=== PATIENT | female | born 1975 | race Caucasian/White ===

== ENCOUNTER 2019-09-14 15:00 | Outpatient (CLI) | payer BC, SELFPAY ==
--- NOTE | 2019-09-14 15:09 | US_ITS ---
WS: [id number] ULTRASOUND RENAL TECHNIQUE: Ultrasound examination of both kidneys. CLINICAL INFORMATION: HEMATURIA COMPARISON: None. FINDINGS: RIGHT: Right kidney is normal in size and appearance. Echogenicity: Normal. Cortical thickness: 1.1 cm; Normal. Hydronephrosis: None. Perinephric fluid: None. Right kidney measures: 11.4 cm x 5.1 cm x 4.7 cm. LEFT: Left kidney is normal in size and appearance. Echogenicity: Normal. Cortical thickness: 1.6 cm; Normal. Hydronephrosis: None. Perinephric fluid: None. Left kidney measures: 12.0 cm x 4.4 cm x 3.6 cm. Normal visualized aorta. Normal bladder US/US renal BI with bladder IMPRESSION: 1. No hydronephrosis in either kidney. 2. Normal bladder. 3. Previously described 6 cm right hepatic cavernous hemangioma incidentally n oted
== END 2019-09-14 15:01 | disposition home or self-care (01) ==
LOC: RAD 15:06
PROVIDERS: Family Provider Family Medicine; PCP Family Medicine; Visit Provider Family Medicine
DX: R31.9 Hematuria, unspecified (principal)
CPT/HCPCS: 76770; 76857

== ENCOUNTER 2019-10-09 09:26 | Outpatient (CLI) | payer BC, SELFPAY ==
--- NOTE | 2019-10-09 09:35 | US_ITS ---
WS: [id number] ULTRASOUND ABDOMEN LIMITED CLINICAL INFORMATION: LIVER/CAVERNOUS HEMANGIOMA COMPARISON: MRI March 22, 2019 and ultrasound March 12, 2019 FINDINGS: Liver Size: Normal. Craniocaudal length: 17.0 cm. Echogenicity: Normal. Surface nodularity: None. Mass (size and location): Right hepatic hemangioma measuring 5.7 x 6.2 x 5.3 cm appears unchanged Bile ducts Intrahepatic ducts: Normal. Common bile duct diameter: 2.3 mm. Gallbladder Normal. Gallstones: None. Gallbladder sludge: None. Gallbladder wall thickening: None. Pericholecystic fluid: None. Sonographic Marques sign: Absent. Pancreas Not well seen Right kidney: Normal. Hydronephrosis: None. Size: 12.0 cm x 4.5 cm x 4.3 cm. Abdominal aorta and IVC Visualized portions are normal. Ascites: None. US/US abdomen limited [id number] IMPRESSION: 1. Stable right hepatic cavernous hemangioma measuring 5.7 x 6.2 x 5.3 CCM. 2. Gallbladder is normal. 3. No hydronephrosis in right kidney.
== END 2019-10-09 09:27 | disposition home or self-care (01) ==
LOC: US 09:29
PROVIDERS: Family Provider Family Medicine; PCP Family Medicine; Visit Provider Family Medicine
DX: D18.03 Hemangioma of intra-abdominal structures (principal)
CPT/HCPCS: 76705

== ENCOUNTER → 2019-10-12 13:23 | Outpatient (BNVA) | payer BC, SELFPAY | PROVIDERS: Family Provider Family Medicine; PCP Family Medicine; Visit Provider Anesthesiology | DX: G89.29 Other chronic pain (principal); M51.36 Other intervertebral disc degeneration, lumbar region; Z79.891 Long term (current) use of opiate analgesic | CPT/HCPCS: 99213; 99214 ==

== ENCOUNTER → 2020-02-01 11:35 | Outpatient (BNVA) | payer BC, OTHER, SELFPAY | PROVIDERS: Family Provider Family Medicine; PCP Family Medicine; Visit Provider Nurse Practitioner | DX: G89.29 Other chronic pain (principal); M54.41 Lumbago with sciatica, right side; M54.42 Lumbago with sciatica, left side; M19.90 Unspecified osteoarthritis, unspecified site; Z79.891 Long term (current) use of opiate analgesic | CPT/HCPCS: 99213 ==

== ENCOUNTER → 2020-03-28 10:02 | Outpatient (BNVA) | payer OTHER, SELFPAY | PROVIDERS: Family Provider Family Medicine; PCP Family Medicine; Visit Provider Nurse Practitioner | DX: G89.29 Other chronic pain (principal); M54.41 Lumbago with sciatica, right side; M51.36 Other intervertebral disc degeneration, lumbar region; M19.90 Unspecified osteoarthritis, unspecified site; Z79.891 Long term (current) use of opiate analgesic | CPT/HCPCS: 99213 ==

== ENCOUNTER → 2020-05-30 08:48 | Outpatient (BNVA) | payer OTHER, SELFPAY | PROVIDERS: Family Provider Family Medicine; PCP Internal Medicine; Visit Provider Anesthesiology | DX: G89.29 Other chronic pain (principal); M51.36 Other intervertebral disc degeneration, lumbar region; Z79.891 Long term (current) use of opiate analgesic | CPT/HCPCS: 99212; 99214 ==

== ENCOUNTER → 2020-07-29 10:05 | Outpatient (BNVA) | payer OTHER, SELFPAY | PROVIDERS: Family Provider Family Medicine; PCP Internal Medicine; Visit Provider Anesthesiology | DX: G89.29 Other chronic pain (principal); M54.41 Lumbago with sciatica, right side; M51.36 Other intervertebral disc degeneration, lumbar region; Z79.1 Long term (current) use of non-steroidal anti-inflammatories (NSAID); Z79.891 Long term (current) use of opiate analgesic | CPT/HCPCS: 99213; 99214 ==

== ENCOUNTER 2020-09-16 09:47 | Outpatient (CLI) | payer OTHER, SELFPAY ==
--- NOTE | 2020-09-16 09:58 | MM_ITS ---
WS: [id number] BILATERAL DIGITAL SCREENING MAMMOGRAPHY WITH CAD CLINICAL INFORMATION: SCREENING HISTORY: Screening mammogram. No current complaints. COMPARISON: TECHNIQUE: Bilateral CC and MLO views. FINDINGS: The breasts are composed of heterogeneous fibroglandular density tissue, which can limit the detectio n of small underlying mass lesions. No suspicious mass, asymmetry, calcifications, or architectural d istortion. No evidence of malignancy. MM/[place] [id number] IMPRESSION: BI-RADS: 1-Negative FOLLOW UP: 1 Year Follow-up Recommend return to annual screening mammography.
== END 2020-09-16 09:48 | disposition home or self-care (01) ==
LOC: RADSHAW 09:48
PROVIDERS: PCP Internal Medicine; Visit Provider Internal Medicine
DX: Z12.31 Encounter for screening mammogram for malignant neoplasm of breast (principal)
CPT/HCPCS: 77067

== ENCOUNTER → 2020-09-26 09:00 | Outpatient (BNVA) | payer OTHER, SELFPAY | PROVIDERS: PCP Internal Medicine; Visit Provider Anesthesiology | DX: G89.29 Other chronic pain (principal); M54.41 Lumbago with sciatica, right side; M51.36 Other intervertebral disc degeneration, lumbar region; M79.671 Pain in right foot; M79.672 Pain in left foot; M19.90 Unspecified osteoarthritis, unspecified site; Z79.891 Long term (current) use of opiate analgesic | CPT/HCPCS: 99214 ==

== ENCOUNTER → 2020-11-18 10:34 | Outpatient (BNVA) | payer OTHER, SELFPAY | PROVIDERS: PCP Internal Medicine; Visit Provider Anesthesiology | DX: G89.29 Other chronic pain (principal); M54.41 Lumbago with sciatica, right side; M51.36 Other intervertebral disc degeneration, lumbar region; M79.671 Pain in right foot; M79.672 Pain in left foot; M19.90 Unspecified osteoarthritis, unspecified site; Z79.891 Long term (current) use of opiate analgesic | CPT/HCPCS: 99214 ==

== ENCOUNTER → 2021-01-27 10:36 | Outpatient (BNVA) | payer OTHER, SELFPAY | PROVIDERS: PCP Internal Medicine; Visit Provider Nurse Practitioner | DX: G89.29 Other chronic pain (principal); M70.61 Trochanteric bursitis, right hip; M19.90 Unspecified osteoarthritis, unspecified site; M51.36 Other intervertebral disc degeneration, lumbar region; Z79.891 Long term (current) use of opiate analgesic; Y93.9 Activity, unspecified | CPT/HCPCS: 99213 ==

== ENCOUNTER → 2021-02-04 13:41 | Outpatient (BNVA) | payer OTHER, SELFPAY | PROVIDERS: PCP Internal Medicine; Visit Provider Anesthesiology Pain Medicine | DX: M70.61 Trochanteric bursitis, right hip (principal); Y93.9 Activity, unspecified; Z79.891 Long term (current) use of opiate analgesic | CPT/HCPCS: 20610; 77002; J1030; J3490 ==

== ENCOUNTER → 2021-03-26 09:25 | Outpatient (BNVA) | payer OTHER, SELFPAY | PROVIDERS: PCP Internal Medicine; Visit Provider Nurse Practitioner | DX: G89.29 Other chronic pain (principal); M51.36 Other intervertebral disc degeneration, lumbar region; M19.90 Unspecified osteoarthritis, unspecified site; Z79.891 Long term (current) use of opiate analgesic | CPT/HCPCS: 99213 ==

== ENCOUNTER → 2021-05-28 10:54 | Outpatient (BNVA) | payer OTHER, SELFPAY | PROVIDERS: PCP Internal Medicine; Visit Provider Anesthesiology | DX: G89.29 Other chronic pain (principal); M51.36 Other intervertebral disc degeneration, lumbar region; Z79.891 Long term (current) use of opiate analgesic | CPT/HCPCS: 99213 ==

== ENCOUNTER → 2021-06-11 09:51 | Outpatient (BNVA) | payer OTHER, SELFPAY | PROVIDERS: PCP Internal Medicine; Visit Provider Anesthesiology | DX: G89.29 Other chronic pain (principal); M51.16 Intervertebral disc disorders with radiculopathy, lumbar region; M51.36 Other intervertebral disc degeneration, lumbar region; Z79.891 Long term (current) use of opiate analgesic; Z77.22 Contact with and (suspected) exposure to environmental tobacco smoke (acute) (chronic) | CPT/HCPCS: 62323; J1040; J3490 ==

== ENCOUNTER 2021-09-30 06:56 | Outpatient (CLI) | payer OTHER, SELFPAY ==
--- NOTE | 2021-09-30 07:03 | US_ITS ---
WS: [id number] RIGHT UPPER QUADRANT ULTRASOUND HISTORY: CAVERNOUS HEMANGIOMA, LIVER COMPARISON: 10/09/2019 Liver: 15.2 cm in length. Liver is normal size. Large slightly lobulated hyperechoic mass towards the diaphragm measures 5.5 x 6.4 x 5.1 cm. Consistent with a giant cavernous hemangioma which is been pr eviously described. No significant increase in size and no evidence for an acute hemorrhage. No edema additional masses are identified. Portal Vein: Normal hepatopetal flow with monophasic waveform. Gallbladder: Normally distended gallbladder with no stones or wall thickening. CBD: 0.4 cm Pancreas: Limited visualization. No abnormality identified. Right kidney: 11.3 cm in length. Normal size and echogenicity. No hydronephrosis or mass. Aorta and IVC: Unremarkable abdominal aorta and IVC. No ascites. US/US liver [id number] IMPRESSION: 1. Stability of hepatic giant cavernous hemangioma measuring 5.5 x 6.4 x 5.1 c m. No evidence for interval hemorrhage or enlargement. 2. Normal gallbladder.
== END 2021-09-30 06:57 | disposition home or self-care (01) ==
LOC: RAD 06:57
PROVIDERS: PCP Family Medicine; Visit Provider Family Medicine
DX: D18.03 Hemangioma of intra-abdominal structures (principal)
CPT/HCPCS: 76705

== ENCOUNTER 2021-11-25 11:36 | Outpatient (CLI) | payer OTHER, SELFPAY ==
--- NOTE | 2021-11-25 12:02 | MR_ITS ---
WS: [id number] MRI LUMBAR SPINE WITH CONTRAST TECHNIQUE: Sagittal T1, T2 and STIR imaging. Axial T1 and T2 imaging. Post gadolinium imaging was obt ained. CLINICAL INFORMATION: LUMBAR SPONDYLOSIS W/RADICULOPATHY COMPARISON: CT lumbar spine 10 , and MRI 3 ,009 FINDINGS: Mild lumbar curve. No acute compression. No high-grade central canal stenosis. Mild disc space narrow ing lower thoracic spine at T11-T12. Small annular fissure L4-L5. L1-L2: Mild annular bulging with a tiny shallow central protrusion. Mild facet arthropathy. Spinal ca nal and foramen are patent. L2-L3: Mild annular bulging. Tiny shallow central protrusion. Moderate facet arthropathy. Spinal kayli l and foramen are patent. L3-L4: Mild annular bulging with slight effacement of ventral thecal sac. Moderate facet arthropathy. Spinal canal and foramen are patent. L4-L5: Mild annular bulging. Small annular fissure. Mild LEFT and no significant RIGHT foraminal narr owing. Moderate facet arthropathy. Spinal canal is patent. L5-S1: Mild annular bulging with slight effacement of the ventral thecal sac. Mild facet arthropathy. Spinal canal and foramen are patent. No abnormal gadolinium enhancement. A few tiny disc protrusions in the mid thoracic spine most promin ent at T6-T7. Disc space narrowing in the lower thoracic spine has slightly progressed compared to 2009. MR/MR lumbar spine wo/w con [id number] IMPRESSION: 1. Mild lumbar curve. No acute compression. No high-grade central canal stenos is. 2. Tiny annular fissure L4-L5 with mild annular bulging. Slight effacement of ventral thecal sac. Spinal canal is patent at this level. 3. Tiny shallow central protrusions L1-L2, L2-L3, and L3-L4 without significan t central canal stenosis. 4. Mild to moderate facet arthropathy worse at L3-L4 and L4-L5. 5. Small shallow central protrusion in the thoracic spine T6-T7. 6. No abnormal gadolinium enhancement. 7. No significant foraminal narrowing.
[2021-11-25] MEDS: gadobenate dimeglumine 20 mL vial IV (13:05)
== END 2021-11-25 11:37 | disposition home or self-care (01) ==
LOC: RAD 11:44
PROVIDERS: PCP Family Medicine; Visit Provider General Practice
DX: M47.26 Other spondylosis with radiculopathy, lumbar region (principal); M51.26 Other intervertebral disc displacement, lumbar region; M51.24 Other intervertebral disc displacement, thoracic region
CPT/HCPCS: 72158

== ENCOUNTER 2022-01-05 13:48 | Outpatient (CLI) | payer OTHER, SELFPAY ==
--- NOTE | 2022-01-05 14:07 | XR_ITS ---
WS: [id number] Exam: XR ribs RT 2V* [id number] Date/Time of Exam: 01/05/2022 2:13 PM Reason For Exam: R SIDED RIB PAIN No sign of acute right rib fracture. The right lung is fully expanded and clear. No pulmonary or pleu ral reactive changes. XR/XR ribs RT 2V* [id number] IMPRESSION: 1. Negative right rib study. No pneumothorax.
== END 2022-01-05 13:49 | disposition home or self-care (01) ==
PROVIDERS: PCP Family Medicine; Visit Provider Family Medicine
DX: R07.81 Pleurodynia (principal)
CPT/HCPCS: 71100

== ENCOUNTER → 2023-06-19 14:04 | Outpatient (BNVA) | payer OTHER, SELFPAY | PROVIDERS: PCP Nurse Practitioner Family; Visit Provider Nurse Practitioner | DX: R39.9 Unspecified symptoms and signs involving the genitourinary system (principal); B37.31 Acute candidiasis of vulva and vagina | CPT/HCPCS: 81000 ==

== ENCOUNTER 2024-01-05 13:23 | Outpatient (CLI) | payer OTHER, SELFPAY ==
--- NOTE | 2024-01-05 13:35 | XR_ITS ---
WS: [id number] Left foot, 3 views, 01/05/2024 Clinical Data: PAIN IN LEFT TOE, PLANTAR FIBROMATOSIS Comparison: Left foot, 12/31/2009 Findings: No fractures or dislocations are seen. No bone destruction or erosion is noted. The joint spaces and soft tissues are normal. There is a plantar spur and an Achilles spur. XR/XR foot LT min 3V* [id number] Impression: Negative left foot.
== END 2024-01-05 13:24 | disposition home or self-care (01) ==
PROVIDERS: PCP Family Medicine; Visit Provider Family Medicine
DX: M72.2 Plantar fascial fibromatosis (principal); M25.775 Osteophyte, left foot; M77.32 Calcaneal spur, left foot
CPT/HCPCS: 73630

== ENCOUNTER 2024-10-17 07:59 | Emergency (ER) | payer OTHER, SELFPAY ==
--- NOTE | 2024-10-17 08:02 | XR_ITS ---
WS: [id number] XR hand RT min 3V* [id number] REASON FOR EXAM: injury FINDINGS: No acute fracture. Mild changes of osteoarthritis in the 3 joints of the thumb, otherwise the joint spaces of the right hand are intact and relatively well preserved. XR/XR hand RT min 3V* [id number] IMPRESSION: No acute abnormality.
--- NOTE | 2024-10-17 08:15 | XR_ITS ---
WS: [id number] XR wrist RT min 3V* [id number] REASON FOR EXAM: injury FINDINGS: No acute fracture. Scaphoid and scapholunate interval intact. Normal orientation of the lunate on the lateral view. Distal radius and ulna intact. Osteoarthritis in the carpal metacarpal joint. Mild narrowing of the radial scaphoid joint with mild to moderate subchondral sclerosis of the radius. XR/XR wrist RT min 3V* [id number] IMPRESSION: No acute abnormality. 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
[2024-10-17 08:24] VITALS: BP 163/96; PULSE 59; RESP 18; TEMP 36.7; O2SAT 99; BMI 32.3
[2024-10-17 08:30] VITALS: PULSE 58; O2SAT 98
--- NOTE | 2024-10-17 08:32 | W.ED.EXTPRO ---
HPI - Extremity Problem General: Chief complaint: Extremity Injury, Upper Stated complaint: right hand pain, fall Time Seen by Provider: 10/17/24 08:01 Source: patient Mode of arrival: ambulatory Limitations: no limitations History of Present Illness: 49-year-old female who states she tripped coming out of her house today landed on her right wrist. States that she has pain to the right wrist states she also scraped up her left knee has minimal pain to her knee is able ambulate without any difficulty. She denies hitting her head. Associated symptoms: Deny chest pain, fever(s) or rash Related Data Home Medications ?Medication ?Instructions ?Recorded ?Confirmed cetirizine 10 mg tablet 10 mg PO DAILY 10/12/19 10/17/24 diphenhydramine HCl 25 mg tablet 25 mg PO Q6H PRN allergies 10/12/19 10/17/24 (Benadryl Allergy) pantoprazole 40 mg tablet,delayed 40 mg PO QAM 06/19/23 10/17/24 release (Protonix) celecoxib 200 mg capsule (Celebrex) 200 mg PO QAM 10/17/24 10/17/24 escitalopram oxalate 20 mg tablet 20 mg PO DAILY 10/17/24 10/17/24 hydrochlorothiazide 25 mg tablet 25 mg PO QAM 10/17/24 10/17/24 hydrocodone 10 mg-acetaminophen 1 tab PO Q8H PRN Pain 10/17/24 10/17/24 325 mg tablet solifenacin 5 mg tablet 5 mg PO DAILY 10/17/24 10/17/24 vitamin B complex 1 tab PO DAILY 10/17/24 10/17/24 Previous Rx's ?Medication ?Instructions ?Recorded tizanidine 4 mg tablet 4 mg PO TID PRN muscle spasticity 08/25/21 #90 tabs Allergies Allergy/AdvReac Type Severity Reaction Status Date / Time gabapentin Allergy ADR-Confusi Verified 03/05/24 11:33 on tramadol Allergy ADR-Headach Verified 03/05/24 11:33 e Review of Systems Const: Denies: fever(s), chills, body aches or change in appetite Eyes: Denies: blurry vision or eye discomfort ENMT: Denies: throat pain or dental pain Card: Denies: chest pain Resp: Denies: dyspnea GI: Denies: abdominal pain, nausea, vomiting or diarrhea Musc: Reports: extremity pain; Denies: neck pain or back pain Skin/Breast: Denies: rash Neuro: Denies: headache(s) PFSH ED PFSH: Medical History (Updated 10/17/24 @ 08:42 by Emerita Hutson MD) Chronic low back pain DDD (degenerative disc disease), lumbar Encounter for long-term opiate analgesic use Surgical History History of bilateral tubal ligation Hx of oral surgery History of cryosurgery Family History Other CAD (coronary artery disease) Cancer Diabetes Stroke Social History Smoking and tobacco/nicotine status: never used tobacco/nicotine Second hand smoke exposure: Yes Alcohol intake: never Substance/Drug Use: never Physical Exam Const: COMMON NORMALS: no acute distress, patient oriented x3 and healthy appearing HENMT: COMMON NORMALS: normocephalic and atraumatic HEAD & SCALP: normocephalic and atraumatic Neck/C-Spine: COMMON NORMALS: full ROM and supple Chest: COMMONS NORMALS: normal inspection of the chest Resp: COMMON NORMALS: normal respiratory effort Cardio: COMMON NORMALS: regular rate RATE: regular rate Extremity: NARRATIVE EXTREMITY EXAM: tenderness over right wrist no obvious deformity Neuro: COMMON NORMALS: patient oriented x3, moves all extremities and no focal motor deficits Psych: COMMON NORMALS: mental status grossly normal, Normal thought process present and cooperative THOUGHT PROCESS: Normal thought process present Skin: COMMON NORMALS: no rashes or lesions noted and no wounds GENERAL SKIN EXAM: no rashes or lesions noted Course Vital Signs: Vital signs: Vital Signs Temperature 98.1 F 10/17/24 08:24 Pulse Rate 58 L 10/17/24 08:30 Respiratory Rate 18 10/17/24 08:24 Blood Pressure 163/96 10/17/24 08:24 Pulse Oximetry 98 10/17/24 08:30 Oxygen Delivery Me thod Room Air 10/17/24 08:30 MDM - Extremity (Nontraumatic) Medical Decision Making Patient presents here with right wrist sprain from a fall imaging is negative patient stable for discharge follow-up PCP return if worsening. Medical Records I reviewed the patient's medical records. Lab Data Radiology Impressions Hand X-Ray 10/17/24 08:02 IMPRESSION: No acute abnormality. Wrist X-Ray 10/17/24 08:15 IMPRESSION: No acute abnormality. 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 All radiology interpretation(s) finalized by discharge Discharge Plan Discharge Patient Disposition: Home Clinical Impression: Sprain and strain of wrist Condition: Stable Prescriptions: No Action cetirizine 10 mg tablet 10 mg PO DAILY diphenhydramine HCl [Benadryl Allergy] 25 mg tablet 25 mg PO Q6H PRN (Reason: allergies) tizanidine 4 mg tablet 4 mg PO TID PRN (Reason: muscle spasticity) Qty: 90 1RF pantoprazole [Protonix] 40 mg tablet,delayed release (DR/EC) 40 mg PO QAM hydrocodone-acetaminophen 10-325 mg tablet 1 tab PO Q8H PRN (Reason: Pain) vitamin B complex Tablet 1 tab PO DAILY hydrochlorothiazide 25 mg tablet 25 mg PO QAM escitalopram oxalate 20 mg tablet 20 mg PO DAILY solifenacin 5 mg tablet 5 mg PO DAILY celecoxib [Celebrex] 200 mg capsule 200 mg PO QAM Discharge Orders: Discharge ED (Routine); Ordered 10/17/24 Ordered By: Emerita Hutson Referrals: Hernan Vargas MD [Primary Care Provider] - 4-7 days Discharge Diet: Advance as tolerated Discharge Activity: Resume usual activity Patient Instructions: Wrist Sprain (ED) Print Language: Malay Coding Level of Care Code 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
[2024-10-17] MEDS: naproxen 500 mg Tablet PO (08:43)
[2024-10-17 08:53] VITALS: BP 158/83; PULSE 62; O2SAT 98
== END 2024-10-17 08:54 | disposition home or self-care (01) ==
PROVIDERS: Emergency Provider Emergency Medicine; PCP Family Medicine
DX: S63.501A Unspecified sprain of right wrist, initial encounter (principal); W01.0XXA Fall on same level from slipping, tripping and stumbling without subsequent striking against object, initial encounter
CPT/HCPCS: 73110; 73130; 99283